=== PATIENT | male | born 1990 | race Caucasian/White ===

== ENCOUNTER 2017-01-08 20:07 | Emergency (ER) | payer BC ==
[~2017-01-08] VITALS: Ht 182.9 cm; Wt 70.3 kg
[2017-01-08 20:11] VITALS: BP_SYST 147
[2017-01-08] MEDS ORDERED: IBUPROFEN 800 MG TABLET PO ONE (20:30)
[2017-01-08] MEDS ORDERED: HYDROcodone/ACETAMIN 7.5-325 MG TAB PO ONE (21:00)
[2017-01-08 21:26] VITALS: BP_SYST 132
== END 2017-01-08 21:26 | disposition home or self-care (01) ==
LOC: SED 20:07
DX: S02.2XXA Fracture of nasal bones, initial encounter for closed fracture (principal); X58.XXXA Exposure to other specified factors, initial encounter; Y93.66 Activity, soccer; Y92.39 Other specified sports and athletic area as the place of occurrence of the external cause; Y99.8 Other external cause status
CPT/HCPCS: 70160-TC; 99284